=== PATIENT | female | born 1980 | race Caucasian/White ===

== ENCOUNTER 2018-04-15 19:23 | Emergency (ER) | payer OTHER ==
[~2018-04-15] VITALS: Ht 165.1 cm; Wt 130.5 kg
[~2018-04-15 19:23] MED LIST: MOTRIN 600600 MG/TAB PO; PERCOCET 325 MG1 TA2 PO; PRENATAL1 TA1 PO
[2018-04-15 19:30] VITALS: BP 133/78; TEMP 98.7
[2018-04-15] MEDS ORDERED: AMOXICILLIN 25250 MG PO (20:44)
[2018-04-15] MEDS ORDERED: EFFEXOR-XR150 MG PO (20:45)
[2018-04-15] MEDS ORDERED: AMOXICILLIN875 MG PO (20:45)
[2018-04-15 21:26] VITALS: PULSE 65
== END 2018-04-15 21:27 | disposition home or self-care (01) ==
LOC: COL.ER 19:23
DX: S09.90XA Unspecified injury of head, initial encounter (principal); S16.1XXA Strain of muscle, fascia and tendon at neck level, initial encounter; F32.9 Major depressive disorder, single episode, unspecified; W00.0XXA Fall on same level due to ice and snow, initial encounter; Y92.410 Unspecified street and highway as the place of occurrence of the external cause

== ENCOUNTER 2019-10-01 20:15 | Emergency (ER) | payer BC ==
[~2019-10-01] VITALS: Ht 165.1 cm; Wt 143.2 kg
[~2019-10-01 20:15] MED LIST changes: +AMOXICILLIN 25250 MG PO; +AMOXICILLIN875 MG PO; +EFFEXOR-XR150 MG PO
[2019-10-01 20:32] VITALS: TEMP 99.8
[2019-10-01 21:39] LABS: ALBUMIN 3.8 gm/dL (3.5-5.0); BILIRUBIN,TOTAL 0.8 mg/dL (0.0-1.0); C-REACTIVE PROTEIN 6.6 mg/dL (0.0-0.9); CALCIUM 8.9 mg/dL (8.4-10.2); CREATININE, serum 0.89 (0.52-1.25); POTASSIUM 3.8 mmol/L (3.4-5.0); TOTAL PROTEIN 7.3 gm/dL (6.4-8.2)
[2019-10-01 21:40] LABS: BASO # 0.1 (0.0-0.2); BASO % 0.7 % (0.0-2.0); EOS % 0.4 % (0-4.0); GRAN # 8.4 (1.4-6.5); GRAN % 80.5 % (42.2-75.2); HEMATOCRIT 37.5 % (37.0-47.0); HEMOGLOBIN 12.1 g/dl (12.5-16.0); LYMPH # 1.2 (1.2-3.4); LYMPH % 11.4 % (20.0-51.0); MEAN CELL VOLUME 91 fl (80.0-100.0); MEAN CORPUSCULAR HEMOGLOBIN 29 pg (27.0-31.0); MEAN CORPUSCULAR HGB CONC 32 g/dl (33.0-37.0); MEAN PLATELET VOLUME 11.4 fl (7.4-10.4); MONO # 0.7 (0.1-0.6); MONO % 6.6 % (1.7-9.3); PLATELET COUNT 230 K/mm3 (130-400); RED BLOOD COUNT 4.14 M/mm3 (4.10-5.30); REDCELL DISTRIBUTION WIDTH-CV 13.9 % (11.5-14.5)
[2019-10-01 22:18] LABS: COLLECTION METHOD CLEAN CATCH
[2019-10-01 22:27] LABS: MUCOUS Present /lpf; PH 6 (5-8); SQUAMOUS EPITHELIAL 0-2 /hpf; URINE APPEARANCE Hazy; URINE BACTERIA Rare /hpf; URINE BILIRUBIN Negative (NEGATIVE); URINE BLOOD Negative (NEGATIVE); URINE COLOR Yellow; URINE GLUCOSE Negative (NEGATIVE); URINE KETONE Negative (NEGATIVE); URINE LEUKOCYTE ESTERASE Trace (NEGATIVE); URINE NITRATE Negative (NEGATIVE); URINE PROTEIN(semi-quant) Negative (NEGATIVE); URINE RBC 0-2 /hpf; URINE UROBILINOGEN Negative (NEGATIVE)
[2019-10-01 23:15] VITALS: BP 111/66; PULSE 94
[2019-10-02] MEDS ORDERED: CIPRO 500MG TA500 MG PO (17:28)
== END 2019-10-01 23:20 | disposition home or self-care (01) ==
LOC: COL.ER 20:15
PROVIDERS: Emergency Medicine
DX: R50.9 Fever, unspecified (principal); J06.9 Acute upper respiratory infection, unspecified; R19.7 Diarrhea, unspecified; Z20.828 Contact with and (suspected) exposure to other viral communicable diseases
CPT/HCPCS: J2405; J7030

== ENCOUNTER 2020-06-28 07:55 | Emergency (ER) | payer BC ==
[~2020-06-28] VITALS: Ht 165.1 cm; Wt 145.5 kg
[~2020-06-28 07:55] MED LIST changes: +CIPRO 500MG TA500 MG PO
[2020-06-28 08:08] VITALS: BP 127/83; TEMP 98.1
[2020-06-28] MEDS ORDERED: MOTRIN 400400 MG/TAB PO (09:06)
[2020-06-28] MEDS ORDERED: TYLENOL 325MG325 MG PO (09:06)
[2020-06-28] MEDS ORDERED: CRUTCHES MC (09:18)
[2020-06-28 09:40] VITALS: PULSE 91
== END 2020-06-28 09:40 | disposition home or self-care (01) ==
LOC: COL.ER 07:55
DX: M25.562 Pain in left knee (principal); E66.01 Morbid (severe) obesity due to excess calories; Z88.1 Allergy status to other antibiotic agents; Z88.2 Allergy status to sulfonamides; X50.1XXA Overexertion from prolonged static or awkward postures, initial encounter
CPT/HCPCS: J1885; L1846

== ENCOUNTER → 2021-03-02 | Outpatient (CLI) | payer BC ==
[~2021-03-02] MED LIST changes: +CRUTCHES MC; +MOTRIN 400400 MG/TAB PO; +TYLENOL 325MG325 MG PO
== END ==
LOC: MC.RAD 08:00
DX: Z12.31 Encounter for screening mammogram for malignant neoplasm of breast (principal); Z80.3 Family history of malignant neoplasm of breast

== ENCOUNTER → 2022-06-15 | Outpatient (CLI) | payer BC | LOC: MC.RAD 06:48 | DX: Z12.31 Encounter for screening mammogram for malignant neoplasm of breast (principal); Z91.89 Other specified personal risk factors, not elsewhere classified; Z80.3 Family history of malignant neoplasm of breast ==